=== PATIENT | male | born 1995 | race Caucasian/White ===

== ENCOUNTER 2021-03-19 16:27 | Emergency (ER) | payer BC, SELFPAY ==
[2021-03-19 16:40] VITALS: BP 117/76; PULSE 73; RESP 16; TEMP 37; O2SAT 98; BMI 22.3
== END 2021-03-19 18:23 | disposition left against medical advice (07) ==
LOC: HO.ED 18:11
PROVIDERS: Emergency Provider Emergency Medicine; PCP Nurse Practitioner Adult Health
DX: R53.1 Weakness (principal); R06.02 Shortness of breath
CPT/HCPCS: 99281; 99282

== ENCOUNTER 2021-04-21 00:35 | Emergency (ER) | payer BC, MEDICAID, SELFPAY ==
--- NOTE | 2021-04-21 01:17 | ED_ITS ---
HPI - Anxiety General Chief Complaint: General Medical Stated Complaint: anxiety attack Source: patient, family and EMS Mode of arrival: EMS Limitations: no limitations History of Present Illness HPI narrative: 25-year-old male presents with anxiety and paranoia after eating marijuana edibles. MD complaint: anxiety and heart racing Onset (ago): hour(s) (Several hours) Symptoms: palpitations Severity: moderate Quality: intermittent Place: home History of similar episodes: Yes Provoking factors: other (Marijuana edible use) Relieving factors: nothing Exacerbating factors: other (Marijuana use) Associated symptoms: denies other symptoms Related Data Allergies Allergy/AdvReac Type Severity Reaction Status Date / Time No Known Allergies Allergy Verified 04/21/21 01:30 Review of Systems Review of Systems: Constitutional: No Fever, No Chills ENT/Mouth: No Ear Pain, No Nasal Congestion, No sore throat Eyes: No Eye Pain, No Swelling, No Redness Cardiovascular: No Chest Pain, No SOB Respiratory: No Cough, No Sputum, No Dyspnea Gastrointestinal: No Nausea, No Vomiting, No Diarrhea, No Hematochezia, No Melena Genitourinary: No Dysuria, No Urinary Frequency, No Hematuria Musculoskeletal: No Myalgias Skin: No Skin Lesions, No rash Neuro: No Weakness, No Numbness, No Paresthesias, No Dizziness, No Headache Psych: positive Anxiety, positive Depression, no SI/HI Heme/Lymph: No Lymphadenopathy Endocrine: No Polyuria, No Polydipsia Yes all other systems are reviewed and are negative [facility] Past Medical History Attestation statement: The following information was validated with the patient. Source: old records reviewed Physical Exam Vital Signs: Vital Signs: Last Vital Signs Temp 97.9 F 04/21/21 01:27 Pulse 90 04/21/21 02:00 Resp 14 04/21/21 02:00 BP 113/68 04/21/21 02:00 Pulse Ox 97 04/21/21 02:00 Body Mass Index 22.1 Appearance: Alert. Oriented X3. No acute distress. Eyes: Pupils equal, round and reactive to light. ENT: Pharynx normal. Moist mucous membranes. Neck: Normal inspection. Neck supple. CVS: Normal heart rate and rhythm. Pulses normal. Respiratory: No respiratory distress. Breath sounds normal. Abdomen: Soft and nontender. Skin: Skin warm and dry. Normal skin color. Normal skin turgor. Extremities: No lower extremity edema. Moves all extremities against resistance. Neuro: No motor deficit. No sensory deficit. Cranial nerves 2-12 intact. Course Course Course Narrative: 25-year-old male presents with anxiety after eating marijuana edibles and taking Seroquel. Will order EKG. Vital signs are stable and within normal limits. Patient does have family with him at this time. He does have a history of anxiety and depression and does take a medication for anxiety at home. He denies suicidal ideation, homicidal ideation, and auditory and visual hallucinations at this time. Will discharge home with family. MDM - Anxiety MDM Narrative Medical decision making narrative: Marijuana use Differential Diagnosis Differential diagnosis: Likely panic disorder and acute anxiety Medical Records Attestation: I reviewed the patient's medical records. ECG Data Attestation: I personally reviewed and interpreted this ECG as follows: ECG interpretation date: 04/21/21 ECG interpretation time: 02:05 Prior ECG tracings: not available for review Interpretation: Vent. Rate : 078 BPM ? ? Atrial Rate : 078 BPM ?? P-R Int : 156 ms? QRS Dur : 098 ms ? ? QT Int : 342 ms ? ? ? P-R-T Axes : 075 087 063 degrees ?? QTc Int : 389 ms ? Normal sinus rhythm with sinus arrhythmia Normal ECG No previous ECGs available Discharge Plan Discharge Clinical Impression: Anxiety, Panic attack Marijuana intoxication Qualifiers: Complication of substance-induced condition: uncomplicated Qualified Code(s): F12.920 - Cannabis use, unspecified with intoxication, uncomplicated Patient Disposition: Home, Self-Care Instructions: Cannabis Abuse (ED), Anxiety (ED), Panic Attack (ED) Additional Instructions: You were evaluated for anxiety and panic. You may consider decreasing the amount of marijuana edible use. Please follow-up with outpatient psychiatry as needed. Thank you for choosing this emergency department for evaluation. Please follow-up with primary care physician as needed. Return to the emergency department for any new, concerning, or worsening symptoms. Referrals: [facility] [Provider Group] - 2 days (Anxiety)
[2021-04-21 01:27] VITALS: BP 115/75; PULSE 93; RESP 18; TEMP 36.6; O2SAT 98; BMI 22.1
--- NOTE | 2021-04-21 01:30 | ECG_ITS ---
Test Reason : SUBSTANCE USE Blood Pressure : / mmHG Vent. Rate : 078 BPM Atrial Rate : 078 BPM P-R Int : 156 ms QRS Dur : 098 ms QT Int : 342 ms P-R-T Axes : 075 087 063 degrees QTc Int : 389 ms Normal sinus rhythm with sinus arrhythmia Normal ECG No previous ECGs available Referred By: Shelly Fernando Electronically Signed By:JLUIS GAXIOLA MD
[2021-04-21 02:00] VITALS: BP 113/68; PULSE 90; RESP 14; O2SAT 97
[2021-04-21 02:39] VITALS: BP 130/74; PULSE 88; O2SAT 100
== END 2021-04-21 02:46 | disposition home or self-care (01) ==
PROVIDERS: Emergency Provider Emergency Medicine
DX: F12.980 Cannabis use, unspecified with anxiety disorder (principal); F41.0 Panic disorder [episodic paroxysmal anxiety]; F41.1 Generalized anxiety disorder; F43.0 Acute stress reaction
CPT/HCPCS: 93005; 99283; 99284

== ENCOUNTER 2021-04-22 10:49 | Emergency (ER) | payer BC, MEDICAID, SELFPAY ==
--- NOTE | ~2021-04-22 | XR_ITS ---
EXAMINATION: XR CHEST CLINICAL INFORMATION: Shortness of breath, rule out pneumonia COMPARISON: None TECHNIQUE: 2 views of the chest were obtained. FINDINGS: No significant abnormality is noted involving the heart, lungs, mediastinum, bony thorax or soft tissues. XR/XR chest 2V IMPRESSION: Normal examination.
[2021-04-22 10:54] VITALS: BP 116/80; PULSE 66; O2SAT 99
[2021-04-22 11:40] VITALS: BP 109/78; PULSE 66; RESP 18; TEMP 36.4; O2SAT 96; BMI 20.7
--- NOTE | 2021-04-22 12:48 | ED_ITS ---
HPI - General Adult General Chief complaint: General Medical Stated complaint: EXT NUMBNESS,UNABLE TO SWALLOW FOOD X DAYS,HX ANX Time Seen by Provider: 04/22/21 12:22 Source: patient and family (Mother, Lydia) Mode of arrival: EMS Limitations: no limitations History of Present Illness HPI narrative: 25-year-old male who presents emergency department for evaluation of shortness of breath. Patient states that he developed difficulty breathing prior to coming to the emergency department and called an ambulance. At the time my evaluation he denied having shortness of breath or chest pain. He states that he has been sick since at least March of 2021. He states that he gets intermittent episodes where his face and body go numb. He states that he has had difficulty swallowing food. He states that food gets stuck in his mouth and does not go down his throat. He has no difficulty swallowing liquids. He states these lost at least 15 lb over the last month. He states he has not been able to sleep. He states that over the past 3 nights he has had 1-2 hours of sleep only. The patient takes Seroquel at night but he states this is not helping. He states he has been on clonazepam in the past for anxiety but has been off this medication since November of 2020. He states that he does have significant anxiety but cannot identify a trigger. He did tell me that he is scared he is afraid that is going to . He denies being suicidal or homicidal. He denies hearing voices or being paranoid. Patient has been taking edible marijuana 5 mg at least once or twice a day to help with his anxiety and to help with the sleep. He states that initially when he was taking his medication help but it does not seem to be helping anymore. The patient does have a history autism and does see a therapist for anxiety and depression 3 service not but has not had any recent therapy sessions. The patient was seen here in the emergency department on 04/21/2021 for a panic attack after eating an edible marijuana product. Related Data Previous Rx's Medication Instructions Recorded lorazepam 1 mg tablet (Ativan) 1 mg PO TID PRN #10 tab 04/22/21 omeprazole 20 mg capsule,delayed 20 mg PO DAILY 30 Days #30 cap 04/22/21 release Allergies Allergy/AdvReac Type Severity Reaction Status Date / Time No Known Allergies Allergy Verified 04/22/21 11:44 Review of Systems Review of Systems: Yes all other systems are reviewed and are negative [facility] Past Medical History [facility] Narrative: Past medical history: Depression, anxiety, autism. Past surgical history: None. Social history: The patient lives by himself. Secondary to his autism he is disabled and lives in [address]. He denies tobacco and alcohol use. He does use edible marijuana 5 mg once or twice a day. Social History Social History Advance Directives: No Physical Exam Vital Signs: Vital Signs: Last Vital Signs Temp 97.6 F 04/22/21 11:40 Pulse 66 04/22/21 11:40 Resp 18 04/22/21 11:40 BP 109/78 04/22/21 11:40 Pulse Ox 96 04/22/21 11:40 Body Mass Index 20.7 Const: Other: Awake, alert, . Pleasant and cooperative, male patient, he does seem to be tremulous and anxious, he answers all questions appropriately. HENMT: Head: Yes normal to inspection, Yes normocephalic and Yes atraumatic Ears: external ears normal General nose exam: Normal external nose present Face and sinus: Yes normal facial exam Mouth: Normal oral and palatal mucosa present Throat: Yes posterior oropharynx normal Eyes: General: appearance normal, both eyes and all related structures Pupils: Equal, round and reactive pupils present Neck: Neck: Yes normal visual inspection, Yes no lymphadenopathy, Yes trachea midline and Yes supple Chest: Chest palpation & inspection: normal inspection of the chest and normal palpation of entire chest wall Resp: Effort & Inspection: normal respiratory effort and able to speak in complete sentences Auscultation: clear to auscultation bilaterally Cardio: Rate: regular rate Rhythm: regular rhythm Heart sounds: S1 normal heart sound present, S2 normal heart sound present and no murmurs GI: Inspection: Yes normal to inspection Palpation (GI): Soft to palpation, nontender and no guarding Auscultation: normal bowel sounds : General: Yes no CVA tenderness Back/Spine/Pelvis: Back: no CVA tenderness Skin: General skin exam: no rashes or lesions noted Neuro: Cranial nerves: Yes CN's II-XII intact bilaterally and Yes Equal, round and reactive pupils present Cognition (Neuro): normal cognition Motor exam (neuro): 5/5 motor strength present throughout Extrem: General: Yes normal to inspection Psych: Appearance: grossly normal Speech and movement: Normal speech and movement present Affect: Anxious affect present Attitude: cooperative Thought process: Normal thought process present Thought content: suicidality, no homicidality and no delusions Course Course Course Narrative: 25-year-old male with history of autism, anxiety depression who presents emergency department for evaluation of intermittent numbness of his face, arms and legs shortness of breath, difficulty swallowing solid foods times months but not liquids, 15 lb weight loss, insomnia which is gotten worse and is only had 1-2 hours asleep of the past 3 days. The patient denied suicidal or homicidal ideation but he does have fears that he is going to . The patient takes Seroquel for sleep at night and is not on any other psychiatric medications. Patient's physical examination did reveal that he was anxious otherwise exam was unremarkable. I did order a medical workup to include CBC, CMP, TSH, urinalysis urine tox and alcohol level. 1500: The patient's laboratory evaluation is unremarkable, TSH was negative, COVID was negative, urine tox screen was positive for marijuana only. CBC and comprehensive mild vodka bowel unremarkable as well. At this time I believe that the patient's symptoms are most likely related to anxiety and stress. He does have dysphagia to solids and he does have GERD, I will start him on omeprazole. I will also give the patient a limited number of Ativan to help him with his anxiety over the next several days until he can follow this providers. I did discuss my concerns with the patient and with the patient's mother. Medical Decision Making Lab Data Result diagrams: 04/22/21 13:19 04/22/21 13:19 Labs: Lab Results 04/22/21 04/22/21 04/22/21 Range/Units 13:19 13:19 13:19 WBC 11.8 H (4.8-10.8) X10*3/uL RBC 5.45 (4.60-5.80) X10*6/uL Hgb 16.9 (14.0-18.0) g/dl Hct 47.1 (42-52) % MCV 86.4 (80-98) fL MCH 31.0 (27.0-33.0) pg MCHC 35.9 (31.0-36.0) g/dl RDW 12.7 (11.0-16.0) % Plt Count 219 (160-400) X10*3/uL MPV 11.8 (9.4-12.4) fL Immature Gran % (Auto) 0.3 (0.0-0.4) % Neut % (Auto) 75.5 H (45-73) % Lymph % (Auto) 18.5 L (20-40) % [place] % (Auto) 5.2 (2-11) % Eos % (Auto) 0.2 (0-4) % Baso % (Auto) 0.3 (0-2) % Lymph # (Auto) 2.2 (1.2-4.9) X10*3/uL [place] # (Auto) 0.6 (0.1-1.2) X10*3/uL Eos # (Auto) 0.0 (0.0-0.4) X10*3/uL Baso # (Auto) 0.0 (0.0-0.2) X10*3/uL Abs Immat Gran (auto) 0.03 (0.00-0.03) X10*3/uL Absolute Neuts (auto) 8.9 H (2.0-8.3) X10*3/uL Absolute Nucleated RBC 0.000 (0.0-0.012) X10*3/uL Nucleated RBC % (auto) 0.0 (0.0-0.2) /100WBC Sodium 140 (135-145) mmol/L Potassium 4.5 (3.3-5.1) mmol/L Chloride 103 (96-108) mmol/L Carbon Dioxide 27 (22-29) mmol/L Anion Gap 15 (12-20) BUN 9 (9-16) mg/dL Creatinine 0.85 (0.5-1.4) mg/dL Estim Creat Clear Calc 125.7 Estimated GFR > 60 Random Glucose 107 (60-115) mg/dL Calcium 10.2 (8.4-10.2) mg/dL Total Bilirubin 1.6 H (0.0-1.0) mg/dL AST 23 (5-37) U/L ALT 30 (0-40) U/L Alkaline Phosphatase 68 (39-117) U/L Total Protein 7.9 (6.5-8.0) g/dL Albumin 5.3 H (3.5-5.0) g/dL TSH 0.92 (0.32-4.0) uIU/mL Urine Color Urine Appearance Urine pH (5.0-8.0) Ur Specific [place] (1.005-1.025) Urine Protein (NEG-TRACE) MG/DL Urine Glucose (UA) (NEG) MG/DL Urine Ketones (NEG) MG/DL Urine Blood (NEG) Urine Nitrite (NEG) Ur Leukocyte Esterase (NEG) Urine RBC (0) /HPF Urine WBC (0-4) /HPF Ur Squamous Epith Cells /LPF Urine Bacteria /LPF Urine Mucus /LPF Urine Sperm Urine Opiates Screen (Not Detect) Urine Fentanyl Screen (Not Detect) Ur Barbiturates Screen (Not Detect) Ur Phencyclidine Scrn (Not Detect) Ur Amphetamines Screen (Not Detect) U Benzodiazepines Scrn (Not Detect) Urine Cocaine Screen (Not Detect) U Marijuana (THC) Screen (Not Detect) Ethyl Alcohol mg/dL COVID-19 (BENNY) Negative (Negative) COVID-19 Clin Com See Note 04/22/21 04/22/21 04/22/21 Range/Units 13:19 14:16 14:16 WBC (4.8-10.8) X10*3/uL RBC (4.60-5.80) X10*6/uL Hgb (14.0-18.0) g/dl Hct (42-52) % MCV (80-98) fL MCH (27.0-33.0) pg MCHC (31.0-36.0) g/dl RDW (11.0-16.0) % Plt Count (160-400) X10*3/uL MPV (9.4-12.4) fL Immature Gran % (Auto) (0.0-0.4) % Neut % (Auto) (45-73) % Lymph % (Auto) (20-40) % [place] % (Auto) (2-11) % Eos % (Auto) (0-4) % Baso % (Auto) (0-2) % Lymph # (Auto) (1.2-4.9) X10*3/uL [place] # (Auto) (0.1-1.2) X10*3/uL Eos # (Auto) (0.0-0.4) X10*3/uL Baso # (Auto) (0.0-0.2) X10*3/uL Abs Immat Gran (auto) (0.00-0.03) X10*3/uL Absolute Neuts (auto) (2.0-8.3) X10*3/uL Absolute Nucleated RBC (0.0-0.012) X10*3/uL Nucleated RBC % (auto) (0.0-0.2) /100WBC Sodium (135-145) mmol/L Potassium (3.3-5.1) mmol/L Chloride (96-108) mmol/L Carbon Dioxide (22-29) mmol/L Anion Gap (12-20) BUN (9-16) mg/dL Creatinine (0.5-1.4) mg/dL Estim Creat Clear Calc Estimated GFR Random Glucose (60-115) mg/dL Calcium (8.4-10.2) mg/dL Total Bilirubin (0.0-1.0) mg/dL AST (5-37) U/L ALT (0-40) U/L Alkaline Phosphatase (39-117) U/L Total Protein (6.5-8.0) g/dL Albumin (3.5-5.0) g/dL TSH (0.32-4.0) uIU/mL Urine Color YELLOW Urine Appearance CLEAR Urine pH 6.5 (5.0-8.0) Ur Specific [place] 1.010 (1.005-1.025) Urine Protein TRACE (NEG-TRACE) MG/DL Urine Glucose (UA) NEG (NEG) MG/DL Urine Ketones >=80 (NEG) MG/DL Urine Blood NEG (NEG) Urine Nitrite NEG (NEG) Ur Leukocyte Esterase TRACE H (NEG) Urine RBC 0 (0) /HPF Urine WBC 1-4 (0-4) /HPF Ur Squamous Epith Cells 1+ /LPF Urine Bacteria NONE /LPF Urine Mucus 3+ /LPF Urine Sperm NOTED Urine Opiates Screen Not Detected (Not Detect) Urine Fentanyl Screen Not Detected (Not Detect) Ur Barbiturates Screen Not Detected (Not Detect) Ur Phencyclidine Scrn Not Detected (Not Detect) Ur Amphetamines Screen Not Detected (Not Detect) U Benzodiazepines Scrn Not Detected (Not Detect) Urine Cocaine Screen Not Detected (Not Detect) U Marijuana (THC) Screen POSITIVE H (Not Detect) Ethyl Alcohol < 10 mg/dL COVID-19 (BENNY) (Negative) COVID-19 Clin Com Discharge Plan Discharge Clinical Impression: Anxiety Insomnia Qualifiers: Insomnia type: unspecified Qualified Code(s): G47.00 - Insomnia, unspecified GERD (gastroesophageal reflux disease) Qualifiers: Esophagitis bleeding: without hemorrhage Instructions: Gastroesophageal Reflux Disease (ED), Anxiety (ED) Additional Instructions: Your blood work today included a CBC (complete blood count) CMP (Comprehensive metabolic panel), TSH (thyroid stimulating hormone test), COVID test, urinalysis, urine tox screen, and alcohol level. Your urine tox screen was positive for marijuana only. The rest of your tests were all normal which is very reassuring. Your chest x-ray was normal as well. At this time, I believe that your symptoms are most likely related to anxiety and depression especially your insomnia, difficulty breathing and weight loss. Your difficulty swallowing could be related to too much acid in your stomach that is causing inflammation of your esophagus (food tube). This is called gastroesophageal reflux disease.I am starting you on omeprazole (Prilosec) 20 mg pills, take 1 pill once a day for 1 month, this will reduce the acid in your stomach and hopefully help with your difficulty swallowing. You will need to follow-up with her doctor for further evaluation of your difficulty swallowing. I am giving you a prescription for Ativan (lorazepam) 1 mg pills. You can take 1 pill at night with your Seroquel to help you with sleep. You can take 1 pill up to every 6 hours while you are awake to help with your anxiety. This medication is called a benzodiazepine and can be addicting. If you are concerned about addiction do not get this medication filled or you can ask the pharmacist for less pills than prescribed. This medication will make you sleepy. Follow-up with your doctor in 2 days. Please return to the emergency department if your symptoms get worse or if you develop any symptoms that are concerning to you. Prescriptions: New omeprazole 20 mg capsule,delayed release(DR/EC) 20 mg PO DAILY 30 Days Qty: 30 RF: 0 lorazepam [Ativan] 1 mg tablet 1 mg PO TID PRN (Reason: anxiety) Qty: 10 RF: 0
[2021-04-22] MEDS: LORazepam 1 MG TABLET PO ×2 (13:20→14:33)
[2021-04-22 13:26] LABS: MANUAL DIFF FLAG NO
[2021-04-22 13:33] LABS: Basophils Percent Auto 0.3 % (0-2); Eosinophils Percent Auto 0.2 % (0-4); Hematocrit 47.1 % (42-52); Hemoglobin 16.9 g/dl (14.0-18.0); Imm Gran Abs Auto 0.03 X10*3/uL (0.00-0.03); Imm Gran Pct Auto 0.3 % (0.0-0.4); Lymphocytes Absolute Auto 2.2 X10*3/uL (1.2-4.9); Lymphocytes Percent Auto 18.5 % (20-40); Mean Corpuscular HGB Conc 35.9 g/dl (31.0-36.0); Mean Corpuscular Volume 86.4 fL (80-98); Mean Platelet Volume 11.8 fL (9.4-12.4); Monocytes Absolute Auto 0.6 X10*3/uL (0.1-1.2); Monocytes Percent Auto 5.2 % (2-11); Neutrophils Absolute Auto 8.9 X10*3/uL (2.0-8.3); Neutrophils Percent Auto 75.5 % (45-73); Platelet Count 219 X10*3/uL (160-400); Red Blood Count 5.45 X10*6/uL (4.60-5.80); Red Cell Distribution Width 12.7 % (11.0-16.0); White Blood Count 11.8 X10*3/uL (4.8-10.8)
[2021-04-22 13:41] LABS: Ethanol < 10 mg/dL
[2021-04-22 13:45] LABS: Alanine Aminotransferase 30 U/L (0-40); Albumin Level 5.3 g/dL (3.5-5.0); Alkaline Phosphatase 68 U/L (39-117); Anion Gap 15 (12-20); Aspartate Amino Transferase 23 U/L (5-37); Bilirubin Total 1.6 mg/dL (0.0-1.0); Blood Urea Nitrogen 9 mg/dL (9-16); Calcium 10.2 mg/dL (8.4-10.2); Carbon Dioxide 27 mmol/L (22-29); Chloride 103 mmol/L (96-108); Creatinine Clr Calc Pharmacy 125.7; Estimated Glomerular Filt Rate > 60; Glucose Random 107 mg/dL (60-115); Potassium 4.5 mmol/L (3.3-5.1); Sodium 140 mmol/L (135-145); Total Protein 7.9 g/dL (6.5-8.0)
[2021-04-22 13:53] LABS: IDNOW Serial# 9DD0AD1C
[2021-04-22 13:54] LABS: COVID-19 Test Negative (Negative)
[2021-04-22 14:00] VITALS: BP 120/60; PULSE 74; RESP 17; O2SAT 98
[2021-04-22 14:05] LABS: TSH reflex Free T4 0.92 uIU/mL (0.32-4.0)
[2021-04-22 14:22] LABS: Appearance Urine CLEAR; Color Urine YELLOW; Glucose Urine UA NEG (NEG); Leukocyte Esterase Urine TRACE (NEG); Nitrite Urine NEG (NEG); PH 6.5 (5.0-8.0); UACC Culture Trigger YES; Urine Blood NEG (NEG); Urine Ketones >=80 MG/DL (NEG); Urine Protein TRACE MG/DL (NEG-TRACE)
[2021-04-22 14:30] LABS: Mucus Urine 3+ /LPF; RBC Urine 0 /HPF (0); Sperm Urine NOTED; Squamous Epithelial Cell Urine 1+ /LPF
[2021-04-22 14:39] LABS: Amphetamine Screen Urine Not Detected (Not Detect); Barbiturates, Urine Not Detected (Not Detect); Benzodiazepines Screen Urine Not Detected (Not Detect); Cannabinoid Screen Urine POSITIVE (Not Detect); Cocaine Screen Urine Not Detected (Not Detect); Fentanyl, urine Not Detected (Not Detect); Opiate Screen Urine Not Detected (Not Detect); Phencyclidine Screen Urine Not Detected (Not Detect)
--- NOTE | 2021-04-22 15:17 | PC.NURSE ---
PT WAS EVALUATED BY DR FITZPATRICK. PT AWAKE, ALERT AND ORIENTED X 3. C/O FEELING ANXIOUS. MOTHER AT BEDSIDE. REPORTS THAT THIS HAS BEEN HAPPENING FOR MONTHS. DR FITZPATRICK SPOKE WITH PATIENT/MOTHER IN DEPTH AND DISCUSSED PLAN OF CARE. PLAN IS TO MEDICATE PATIENT AND OBTAIN LABS/XRAY TO R/O ANY MEDICAL ISSUES. PATIENT/MOTHER AGREEABLE TO PLAN. PT OFFERED FOOD/LIQUIDS AND ACCEPTED. TOLERATED WITHOUT INCIDENT. PATIENT HAS DENIED SI/HI AND IS COOPERATIVE WITH CARE.
== END 2021-04-22 15:30 | disposition home or self-care (01) ==
PROVIDERS: Emergency Provider Emergency Medicine Emergency Medical Services
DX: F41.9 Anxiety disorder, unspecified (principal); G47.00 Insomnia, unspecified; K21.9 Gastro-esophageal reflux disease without esophagitis; Z79.899 Other long term (current) drug therapy; Z20.822 Contact with and (suspected) exposure to COVID-19
CPT/HCPCS: 36415; 71046; 80053; 80307; 81001; 82077; 84443; 85025; 87086; 87635; 99284